=== PATIENT | female | born 1945 | race Caucasian/White ===

== ENCOUNTER 2016-04-19 08:53 | Inpatient (IN) | payer MEDICARE ==
[~2016-04-19] VITALS: Ht 165.1 cm; Wt 75.7 kg
[~2016-04-19 08:53] MED LIST: AMLO5TAB66 PO; BENA20TA3 PO; BUPR-47 PO; CARB-60 PO; HYDR25TA PO; LEVO125T11 PO; METF500T4 PO; METO50TA5 PO
[2016-04-19] MEDS ORDERED: HYDR25TA PO (09:05)
[2016-04-19 09:12] LABS: GLUCOSE,POINT OF CARE 171 MG/DL (70-110)
[2016-04-19] MEDS ORDERED: SODIUM CHLORIDE 0.9% 1,000 ML IV ONE (11:00)
[2016-04-19] MEDS ORDERED: ACETAMINOPHEN 1000 MG/ISO-OSM 100 ML IV ONE (11:00)
[2016-04-19 11:17] LABS: BASOPHILS % (AUTO) 0.2 % (0.0-2.0); EOSINOPHILS % (AUTO) 0.2 % (1.0-6.0); HEMATOCRIT 36.6 % (36-46); LYMPHOCYTES # (AUTO) 2.1 K/uL (1.0-4.8); LYMPHOCYTES % (AUTO) 13.1 % (22.0-44.0); MEAN CORPUSCULAR HEMOGLOBIN 30.8 pg (26.0-34.0); MEAN CORPUSCULAR HGB CONC 32.7 G/dL (31.0-37.0); MEAN CORPUSCULAR VOLUME 94 fL (80-100); MONOCYTES # (AUTO) 1.2 K/uL (0.1-1.0); MONOCYTES % (AUTO) 7.2 % (2.0-9.0); NEUTROPHILS % (AUTO) 79.3 % (40.0-70.0); PLATELET COUNT (AUTO) 409 K/uL (150-450); RED BLOOD CELL COUNT(AUTO) 3.88 MIL/uL (4.00-5.20); RED CELL DISTRIBUTION WIDTH 13.2 % (11.5-14.5); WHITE BLOOD COUNT (AUTO) 16.4 K/uL (4.5-11.0)
[2016-04-19 11:34] LABS: ALANINE AMINOTRANSFERASE 16 U/L (12-78); ALBUMIN 2.8 g/dL (3.4-5.0); ANION GAP 9 mmol/L (8-16); ASPARTATE AMINOTRANSFERASE 15 U/L (15-37); BILIRUBIN,TOTAL 0.4 mg/dL (0.1-1.0); CALCIUM, TOTAL 8.2 mg/dL (8.8-10.5); CARBON DIOXIDE 33 mmol/L (22-29); CHLORIDE 90 mmol/L (98-107); CREATININE 0.82 mg/dL (0.60-1.30); GLOMERULAR FILTR. RATE CALC > 60 mL/min (>60); SODIUM SERUM 132 mmol/L (136-145); TOTAL PROTEIN, SERUM 7.4 g/dL (6.4-8.2); UREA NITROGEN, BLOOD 9 mg/dL (7-18)
[2016-04-19 11:36] LABS: POTASSIUM 2.4 mmol/L (3.5-5.1)
[2016-04-19] MEDS ORDERED: POTASSIUM CHLORIDE 20 MEQ ER TABLET PO ONE (11:45)
[2016-04-19] MEDS: POTASSIUM CHL 10 MEQ/WATER 50 ML IV SCH ×4 (12:05→22:09)
[2016-04-19] MEDS ORDERED: AZITHROMYCIN 500 MG/NS 250 ML IV ONE (12:15)
[2016-04-19] MEDS ORDERED: OSELTAMIVIR PHOSPHATE 75 MG CAPSULE PO ONE (12:15)
[2016-04-19] MEDS ORDERED: CefTRIAXone 1 GM/DEXTROSE 50 ML IV ONE (12:15)
[2016-04-19 12:20] LABS: INFLUENZA TYPE B NEGATIVE FOR TYPE B (NEGATIVE)
[2016-04-19] MEDS ORDERED: ACETAMINOPHEN 325 MG TABLET PO PRN (13:15)
[2016-04-19] MEDS ORDERED: ONDANSETRON HCL 4 MG/2 ML VIAL IVP PRN (13:15)
[2016-04-19] MEDS ORDERED: SODIUM CHLORIDE 0.9% 500 ML IV ONE (13:20)
[2016-04-19] MEDS ORDERED: ALBUTEROL SULFATE 2.5 MG/0.5 ML NEB SOLUTION NEB PRN (14:15)
[2016-04-19] MEDS ORDERED: MAGNESIUM HYDROXIDE SUSPENSION 30 ML UDCUP PO PRN (14:15)
[2016-04-19] MEDS ORDERED: POTASSIUM CHL 10 MEQ/WATER 50 ML IV PRN (14:30)
[2016-04-19 14:51] VITALS: BP 138/74
[2016-04-19] MEDS ORDERED: SODIUM CHLORIDE 0.9% 100 ML ONE (15:02)
[2016-04-19] MEDS: HEPARIN SODIUM,PORCINE 5,000 UNITS/ML VIAL SQ SCH ×2 (16:00→23:58)
[2016-04-19 16:13] VITALS: BP 135/84
[2016-04-19] MEDS ORDERED: DEXTROSE 50%-WATER 25 GM/50 ML SYRINGE IVP PRN (17:15)
[2016-04-19] MEDS: AZITHROMYCIN 500 MG/NS 250 ML IV SCH (18:04)
[2016-04-19 18:27] LABS: GLUCOSE,POINT OF CARE 106 MG/DL (70-110)
[2016-04-19] MEDS ORDERED: INFLUENZA VIRUS VACCINE QVS 2016-17 (3YR+)/PF 60 MCG/0.5 ML SYRINGE IM ONE (19:30)
[2016-04-19] MEDS ORDERED: PNEUMOCOCCAL VACCINE POLYVALENT 0.5 ML VIAL [PPSV23] IM ONE (19:30)
[2016-04-19 19:35] VITALS: BP 138/74
[2016-04-19] MEDS: DOCUSATE SODIUM 100 MG CAPSULE PO SCH (20:07)
[2016-04-19] MEDS: ACETAMINOPHEN 325 MG TABLET PO PRN (20:07)
[2016-04-19] MEDS: OSELTAMIVIR PHOSPHATE 75 MG CAPSULE PO SCH (20:07)
[2016-04-19] MEDS: INSULIN ASPART 100 UNITS/ML SQ PRN (20:44)
[2016-04-19 22:16] LABS: GLUCOSE COMMENT 1 Received Meds; GLUCOSE,POINT OF CARE 151 MG/DL (70-110)
[2016-04-20] VITALS (7 sets, daily range): BP systolic 121–146; BP diastolic 57–84
[2016-04-20] MEDS: GuaiFENesin/D-METHORPHAN [SUGAR-FREE] 200-20MG/10 ML SYRUP UDCUP PO PRN ×3 (04:50→21:29)
[2016-04-20] MEDS: ACETAMINOPHEN 325 MG TABLET PO PRN (04:51)
[2016-04-20] MEDS: INSULIN ASPART 100 UNITS/ML SQ PRN (06:07)
[2016-04-20] MEDS: HEPARIN SODIUM,PORCINE 5,000 UNITS/ML VIAL SQ SCH ×3 (08:00→23:50)
[2016-04-20] MEDS: DOCUSATE SODIUM 100 MG CAPSULE PO SCH ×2 (09:00→21:29)
[2016-04-20] MEDS: POTASSIUM CHLORIDE 20 MEQ ER TABLET PO PRN ×2 (09:56→17:29)
[2016-04-20] MEDS: PANTOPRAZOLE SODIUM 40 MG DR TABLET PO SCH (09:57)
[2016-04-20] MEDS: OSELTAMIVIR PHOSPHATE 75 MG CAPSULE PO SCH ×2 (09:58→21:30)
[2016-04-20 14:57] LABS: GLUCOSE,POINT OF CARE 137 MG/DL (70-110)
[2016-04-20] MEDS: AZITHROMYCIN 500 MG/NS 250 ML IV SCH (17:13)
[2016-04-20] MEDS ORDERED: AMLO-512 PO (17:53)
[2016-04-20 21:37] LABS: GLUCOSE,POINT OF CARE 140 MG/DL (70-110)
[2016-04-21 02:42] LABS: GLUCOSE,POINT OF CARE 115 MG/DL (70-110)
[2016-04-21 04:00] VITALS: BP 144/73
[2016-04-21 06:12] LABS: BASOPHILS % (AUTO) 0.6 % (0.0-2.0); EOSINOPHILS % (AUTO) 0.6 % (1.0-6.0); HEMATOCRIT 34.7 % (36-46); HEMOGLOBIN 11.2 g/dL (12.0-16.0); LYMPHOCYTES % (AUTO) 22.2 % (22.0-44.0); MEAN CORPUSCULAR HEMOGLOBIN 30.3 pg (26.0-34.0); MEAN CORPUSCULAR HGB CONC 32.2 G/dL (31.0-37.0); MEAN CORPUSCULAR VOLUME 94 fL (80-100); MONOCYTES # (AUTO) 1.2 K/uL (0.1-1.0); MONOCYTES % (AUTO) 8.7 % (2.0-9.0); NEUTROPHILS # (AUTO) 9.1 K/uL (1.8-7.7); NEUTROPHILS % (AUTO) 67.9 % (40.0-70.0); PLATELET COUNT (AUTO) 432 K/uL (150-450); RED BLOOD CELL COUNT(AUTO) 3.69 MIL/uL (4.00-5.20); RED CELL DISTRIBUTION WIDTH 13.1 % (11.5-14.5); WHITE BLOOD COUNT (AUTO) 13.4 K/uL (4.5-11.0)
[2016-04-21 06:26] LABS: ANION GAP 10 mmol/L (8-16); CALCIUM, TOTAL 8.6 mg/dL (8.8-10.5); CARBON DIOXIDE 26 mmol/L (22-29); CHLORIDE 99 mmol/L (98-107); CREATININE 0.64 mg/dL (0.60-1.30); GLOMERULAR FILTR. RATE CALC > 60 mL/min (>60); POTASSIUM 3.8 mmol/L (3.5-5.1); SODIUM SERUM 135 mmol/L (136-145); UREA NITROGEN, BLOOD 7 mg/dL (7-18)
[2016-04-21 06:57] LABS: GLUCOSE,POINT OF CARE 127 MG/DL (70-110)
[2016-04-21 07:49] VITALS: BP 143/88
[2016-04-21] MEDS: DOCUSATE SODIUM 100 MG CAPSULE PO SCH (08:18)
[2016-04-21] MEDS: OSELTAMIVIR PHOSPHATE 75 MG CAPSULE PO SCH (08:18)
[2016-04-21] MEDS: PANTOPRAZOLE SODIUM 40 MG DR TABLET PO SCH (08:18)
[2016-04-21] MEDS: ACETAMINOPHEN 325 MG TABLET PO PRN (08:18)
[2016-04-21] MEDS: GuaiFENesin/D-METHORPHAN [SUGAR-FREE] 200-20MG/10 ML SYRUP UDCUP PO PRN (08:18)
[2016-04-21] MEDS: HEPARIN SODIUM,PORCINE 5,000 UNITS/ML VIAL SQ SCH (08:19)
[2016-04-21 11:51] VITALS: BP 145/78
[2016-04-21 15:15] VITALS: BP 146/77
[2016-04-21 16:16] LABS: GLUCOSE,POINT OF CARE 109 MG/DL (70-110)
[2016-04-22 11:58] LABS: GLUCOSE,POINT OF CARE 131 MG/DL (70-110)
== END 2016-04-21 16:20 | disposition home or self-care (01) | DRG 195 ==
LOC: EMS 08:54 → 5S 12:33 → 6N 04-20 19:00
PROVIDERS: ADMIT Internal Medicine; ATTEND Internal Medicine
PROC: 3E0234Z Introduction of Serum, Toxoid and Vaccine into Muscle, Percutaneous Approach (ICD-10-PCS; principal; 2016-04-19)
DX: J11.00 Influenza due to unidentified influenza virus with unspecified type of pneumonia (principal); E03.9 Hypothyroidism, unspecified; E11.9 Type 2 diabetes mellitus without complications; E66.9 Obesity, unspecified; E87.6 Hypokalemia; I10 Essential (primary) hypertension; J40 Bronchitis, not specified as acute or chronic; F41.9 Anxiety disorder, unspecified; Z79.899 Other long term (current) drug therapy; Z87.891 Personal history of nicotine dependence; Z23 Encounter for immunization
CPT/HCPCS: 82962; 83605; 84132; 87040; 87804; 90471; 93005; 96365; 99285; J0131; J0456; J1644; J3480; J7030; J7040; J7050

== ENCOUNTER 2021-03-17 13:01 | Inpatient (IN) | payer MEDICARE ==
[~2021-03-17] VITALS: Ht 160 cm; Wt 69.9 kg
[~2021-03-17 13:01] MED LIST changes: -AMLO5TAB66 PO; -BENA20TA3 PO; -BUPR-47 PO; +BUPR-49 PO; -CARB-60 PO; -HYDR25TA PO; -METF500T4 PO; -METO50TA5 PO
[2021-03-17] MEDS ORDERED: ONDANSETRON HCL 4 MG/2 ML VIAL IVP ONE (15:30)
[2021-03-17] MEDS ORDERED: SODIUM CHLORIDE 0.9% 1,000 ML IV ONE (15:30)
[2021-03-17] MEDS ORDERED: ACETAMINOPHEN 500 MG TABLET PO ONE (15:30)
[2021-03-17] MEDS ORDERED: METO50 PO (15:31)
[2021-03-17] MEDS ORDERED: HYDR25TA PO (15:31)
[2021-03-17] MEDS ORDERED: POTA-185 PO (15:31)
[2021-03-17] MEDS ORDERED: BENA40TA92 PO (15:31)
[2021-03-17] MEDS ORDERED: METF-1211 PO (15:31)
[2021-03-17] MEDS ORDERED: FENO134C PO (15:31)
[2021-03-17] MEDS ORDERED: ATOR20TA65 PO (15:31)
[2021-03-17] MEDS ORDERED: LEVO137T24 PO (15:31)
[2021-03-17 16:01] LABS: BASOPHILS % (AUTO) 0.1 % (0.0-2.0); EOSINOPHILS % (AUTO) 0.1 % (1.0-6.0); HEMATOCRIT 42.2 % (36-46); HEMOGLOBIN 14.3 g/dL (12.0-16.0); LYMPHOCYTES # (AUTO) 1.7 K/uL (1.0-4.8); LYMPHOCYTES % (AUTO) 18.6 % (22.0-44.0); MEAN CORPUSCULAR HEMOGLOBIN 30.8 pg (26.0-34.0); MEAN CORPUSCULAR HGB CONC 33.8 G/dL (31.0-37.0); MEAN CORPUSCULAR VOLUME 91 fL (80-100); MONOCYTES # (AUTO) 0.7 K/uL (0.1-1.0); MONOCYTES % (AUTO) 7.9 % (2.0-9.0); NEUTROPHILS # (AUTO) 6.6 K/uL (1.8-7.7); NEUTROPHILS % (AUTO) 73.3 % (40.0-70.0); PLATELET COUNT (AUTO) 341 K/uL (150-450); RED BLOOD CELL COUNT(AUTO) 4.63 MIL/uL (4.00-5.20); RED CELL DISTRIBUTION WIDTH 13.1 % (11.5-14.5)
[2021-03-17 16:07] LABS: BILIRUBIN,TOTAL 0.3 mg/dL (0.1-1.0); CALCIUM, TOTAL 8.9 mg/dL (8.8-10.5); CREATININE 1.83 mg/dL (0.60-1.30); TOTAL PROTEIN, SERUM 7.8 g/dL (6.4-8.2)
[2021-03-17 16:12] LABS: COVID AG,FIA SOURCE NASOPHARYNGEAL
[2021-03-17 16:12] LABS: POTASSIUM 2.9 mmol/L (3.5-5.1)
[2021-03-17] MEDS ORDERED: POTASSIUM CHLORIDE 10% 40 MEQ/30 ML LIQUID UDCUP PO ONE ×2 (16:15→17:30)
[2021-03-17] MEDS ORDERED: ASPIRIN 325 MG TABLET PO ONE (16:30)
[2021-03-17] MEDS ORDERED: DILTIAZEM HCL 5 MG/ML 5 ML VIAL IVP ONE ×2 (16:30→18:45)
[2021-03-17] MEDS ORDERED: DIGOXIN 250 MCG/ML 2 ML AMP IVP ONE (16:30)
[2021-03-17] MEDS ORDERED: CALCIUM GLUCONATE 100 MG/ML 10 ML IVP ONE (16:30)
[2021-03-17] MEDS ORDERED: ONDANSETRON HCL 4 MG/2 ML VIAL IVP PRN (19:15)
[2021-03-17] MEDS ORDERED: HEPARIN SODIUM,PORCINE 5,000 UNITS/ML VIAL IVP PRN (19:30)
[2021-03-17] MEDS ORDERED: HEPARIN SODIUM,PORCINE 5,000 UNITS/ML VIAL IVP ONE (19:30)
[2021-03-17] MEDS ORDERED: DEXTROSE 50%-WATER 25 GM/50 ML SYRINGE IVP PRN (19:30)
[2021-03-17 19:50] LABS: INR 0.9 (0.9-1.1); PROTHROMBIN TIME 9.9 SEC (9.4-11.6)
[2021-03-17] MEDS: HEPARIN SODIUM 25000 UNITS/D5W 250 ML IV PRN (20:14)
[2021-03-17] MEDS: METOPROLOL TARTRATE 50 MG TABLET PO SCH (20:41)
[2021-03-17] MEDS ORDERED: ATORVASTATIN CALCIUM 40 MG TABLET PO ONE (20:45)
[2021-03-18 00:30] LABS: CALCIUM, TOTAL 8.4 mg/dL (8.8-10.5); CREATININE 1.55 mg/dL (0.60-1.30); POTASSIUM 3.4 mmol/L (3.5-5.1)
[2021-03-18] MEDS: LEVOTHYROXINE SODIUM 137 MCG TABLET PO SCH (06:19)
[2021-03-18] MEDS ORDERED: POTASSIUM CHLORIDE 20 MEQ ER TABLET PO ONE (08:30)
[2021-03-18] MEDS ORDERED: REMDESIVIR 200 MG in SODIUM CHLORIDE 0.9% 250 ML IV ONE (09:00)
[2021-03-18] MEDS: METOPROLOL TARTRATE 50 MG TABLET PO SCH ×2 (09:54→21:11)
[2021-03-18] MEDS: ASPIRIN 81 MG CHEWABLE TABLET PO SCH (09:54)
[2021-03-18] MEDS: ATORVASTATIN CALCIUM 20 MG TABLET PO SCH (09:54)
[2021-03-18] MEDS: DEXAMETHASONE SOD PHOS 4 MG/ML VIAL IVP SCH (09:57)
[2021-03-18 10:12] LABS: BASOPHILS % (AUTO) 0.2 % (0.0-2.0); EOSINOPHILS % (AUTO) 0.7 % (1.0-6.0); HEMATOCRIT 35.7 % (36-46); HEMOGLOBIN 12.1 g/dL (12.0-16.0); LYMPHOCYTES # (AUTO) 2.1 K/uL (1.0-4.8); MEAN CORPUSCULAR HEMOGLOBIN 30.6 pg (26.0-34.0); MEAN CORPUSCULAR HGB CONC 33.9 G/dL (31.0-37.0); MEAN CORPUSCULAR VOLUME 90 fL (80-100); MONOCYTES # (AUTO) 0.8 K/uL (0.1-1.0); MONOCYTES % (AUTO) 8.7 % (2.0-9.0); NEUTROPHILS # (AUTO) 5.8 K/uL (1.8-7.7); NEUTROPHILS % (AUTO) 66.4 % (40.0-70.0); PLATELET COUNT (AUTO) 308 K/uL (150-450); RED BLOOD CELL COUNT(AUTO) 3.96 MIL/uL (4.00-5.20); RED CELL DISTRIBUTION WIDTH 13.3 % (11.5-14.5)
[2021-03-18 11:11] LABS: GLUCOMETER DEV NAME(LOC) ERT.5; GLUCOSE,POINT OF CARE 110 MG/DL (70-110)
[2021-03-18] MEDS: FENOFIBRATE,MICRONIZED 67 MG CAPSULE PO SCH (12:14)
[2021-03-18] MEDS: BuPROPion HCL XL 150 MG ER TABLET PO SCH (12:14)
[2021-03-18 18:11] LABS: GLUCOSE,POINT OF CARE 99 MG/DL (70-110)
[2021-03-18] MEDS: ACETAMINOPHEN 325 MG TABLET PO PRN (20:43)
[2021-03-19] VITALS (7 sets, daily range): BP systolic 118–144; BP diastolic 50–89
[2021-03-19] MEDS: ACETAMINOPHEN 325 MG TABLET PO PRN (06:23)
[2021-03-19 06:31] LABS: GLUCOMETER DEV NAME(LOC) 5S.2B; GLUCOSE,POINT OF CARE 101 MG/DL (70-110)
[2021-03-19 07:01] LABS: BASOPHILS % (AUTO) 0.2 % (0.0-2.0); EOSINOPHILS % (AUTO) 0.3 % (1.0-6.0); HEMATOCRIT 37.5 % (36-46); HEMOGLOBIN 12.8 g/dL (12.0-16.0); LYMPHOCYTES # (AUTO) 2.4 K/uL (1.0-4.8); LYMPHOCYTES % (AUTO) 26.2 % (22.0-44.0); MEAN CORPUSCULAR HEMOGLOBIN 30.8 pg (26.0-34.0); MEAN CORPUSCULAR HGB CONC 34.1 G/dL (31.0-37.0); MEAN CORPUSCULAR VOLUME 90 fL (80-100); MONOCYTES # (AUTO) 0.7 K/uL (0.1-1.0); MONOCYTES % (AUTO) 7.9 % (2.0-9.0); NEUTROPHILS % (AUTO) 65.4 % (40.0-70.0); PLATELET COUNT (AUTO) 379 K/uL (150-450); RED BLOOD CELL COUNT(AUTO) 4.15 MIL/uL (4.00-5.20); RED CELL DISTRIBUTION WIDTH 13.1 % (11.5-14.5)
[2021-03-19 07:27] LABS: ALANINE AMINOTRANSFERASE 17 U/L (12-78); ALBUMIN 2.5 g/dL (3.4-5.0); ALKALINE PHOSPHATASE 54 U/L (46-116); ANION GAP 12 mmol/L (8-16); ASPARTATE AMINOTRANSFERASE 24 U/L (15-37); BILIRUBIN,TOTAL 0.2 mg/dL (0.1-1.0); C-REACTIVE PROTEIN QUANT 6.55 mg/dL (0.00-0.30); CALCIUM, TOTAL 8.3 mg/dL (8.8-10.5); CARBON DIOXIDE 25 mmol/L (22-29); CHLORIDE 100 mmol/L (98-107); CREATININE 1.04 mg/dL (0.60-1.30); FERRITIN 116 ng/mL (8-252); GLOMERULAR FILTR. RATE CALC 52 mL/min (>60); GLUCOSE,RANDOM 105 mg/dL (70-110); POTASSIUM 3.4 mmol/L (3.5-5.1); SODIUM SERUM 137 mmol/L (136-145); TOTAL PROTEIN, SERUM 6.8 g/dL (6.4-8.2); UREA NITROGEN, BLOOD 27 mg/dL (7-18)
[2021-03-19 07:30] LABS: D-DIMER 0.82 mg/L FEU (0.00-0.50)
[2021-03-19] MEDS: BuPROPion HCL XL 150 MG ER TABLET PO SCH (08:29)
[2021-03-19] MEDS: METOPROLOL TARTRATE 50 MG TABLET PO SCH ×2 (08:29→21:20)
[2021-03-19] MEDS: FENOFIBRATE,MICRONIZED 67 MG CAPSULE PO SCH (08:29)
[2021-03-19] MEDS: ASPIRIN 81 MG CHEWABLE TABLET PO SCH (08:30)
[2021-03-19] MEDS: FAMOTIDINE 20 MG TABLET PO SCH (08:30)
[2021-03-19] MEDS: LEVOTHYROXINE SODIUM 137 MCG TABLET PO SCH (08:30)
[2021-03-19] MEDS: ATORVASTATIN CALCIUM 20 MG TABLET PO SCH (08:31)
[2021-03-19] MEDS: DEXAMETHASONE SOD PHOS 4 MG/ML VIAL IVP SCH (08:31)
[2021-03-19] MEDS: HEPARIN SODIUM,PORCINE 5,000 UNITS/ML VIAL IVP PRN (08:34)
[2021-03-19] MEDS ORDERED: MAGNESIUM SULFATE 2 GM/WATER 50 ML IV PRN (09:00)
[2021-03-19] MEDS ORDERED: MAGNESIUM SULFATE 4 GM/WATER 100 ML IV PRN (09:00)
[2021-03-19] MEDS ORDERED: POTASSIUM CHL 10 MEQ/WATER 50 ML IV PRN (09:00)
[2021-03-19] MEDS ORDERED: POTASSIUM CHLORIDE 20 MEQ ER TABLET PO PRN (09:00)
[2021-03-19] MEDS: LOSARTAN POTASSIUM 25 MG TABLET PO SCH ×2 (09:15→21:13)
[2021-03-19] MEDS: REMDESIVIR 100 MG in SODIUM CHLORIDE 0.9% 250 ML IV SCH (12:08)
[2021-03-19] MEDS: MAGNESIUM OXIDE 400 MG TABLET PO PRN ×2 (14:42→21:13)
[2021-03-19 16:38] LABS: ALBUMIN 2.3 g/dL (3.4-5.0)
[2021-03-19 17:23] LABS: INFLUENZA TYPE A NEGATIVE FOR TYPE A (NEGATIVE); INFLUENZA TYPE B NEGATIVE FOR TYPE B (NEGATIVE)
[2021-03-19] MEDS: INSULIN LISPRO 100 UNITS/ML SQ PRN ×2 (18:06→21:26)
[2021-03-19 19:37] LABS: POTASSIUM 3.9 mmol/L (3.5-5.1)
[2021-03-19 20:36] LABS: GLUCOMETER DEV NAME(LOC) 5S.1; GLUCOSE,POINT OF CARE 140 MG/DL (70-110)
[2021-03-19 20:36] LABS: GLUCOMETER DEV NAME(LOC) 5S.1; GLUCOSE,POINT OF CARE 155 MG/DL (70-110)
[2021-03-20] MEDS: HEPARIN SODIUM 25000 UNITS/D5W 250 ML IV PRN (03:31)
[2021-03-20 04:18] VITALS: BP 143/86
[2021-03-20] MEDS: INSULIN LISPRO 100 UNITS/ML SQ PRN ×2 (05:44→11:44)
[2021-03-20] MEDS: LEVOTHYROXINE SODIUM 137 MCG TABLET PO SCH (06:00)
[2021-03-20 07:15] VITALS: BP 158/83
[2021-03-20 07:29] LABS: BASOPHILS % (AUTO) 0.2 % (0.0-2.0); EOSINOPHILS % (AUTO) 0.3 % (1.0-6.0); HEMOGLOBIN 12.7 g/dL (12.0-16.0); LYMPHOCYTES # (AUTO) 3.1 K/uL (1.0-4.8); MEAN CORPUSCULAR HEMOGLOBIN 30.5 pg (26.0-34.0); MEAN CORPUSCULAR HGB CONC 33.6 G/dL (31.0-37.0); MEAN CORPUSCULAR VOLUME 91 fL (80-100); MONOCYTES # (AUTO) 1.1 K/uL (0.1-1.0); MONOCYTES % (AUTO) 10.2 % (2.0-9.0); NEUTROPHILS # (AUTO) 6.4 K/uL (1.8-7.7); NEUTROPHILS % (AUTO) 60.3 % (40.0-70.0); PLATELET COUNT (AUTO) 440 K/uL (150-450); RED BLOOD CELL COUNT(AUTO) 4.18 MIL/uL (4.00-5.20); RED CELL DISTRIBUTION WIDTH 13.5 % (11.5-14.5)
[2021-03-20 07:48] LABS: ALBUMIN 2.7 g/dL (3.4-5.0); BILIRUBIN,TOTAL 0.3 mg/dL (0.1-1.0); C-REACTIVE PROTEIN QUANT 4.9 mg/dL (0.00-0.30); CALCIUM, TOTAL 8.7 mg/dL (8.8-10.5); CREATININE 1.04 mg/dL (0.60-1.30); MAGNESIUM 1.6 mg/dL (1.80-2.40); POTASSIUM 3.7 mmol/L (3.5-5.1)
[2021-03-20 07:55] LABS: D-DIMER 0.89 mg/L FEU (0.00-0.50)
[2021-03-20] MEDS: BuPROPion HCL XL 150 MG ER TABLET PO SCH (09:31)
[2021-03-20] MEDS: LOSARTAN POTASSIUM 25 MG TABLET PO SCH ×2 (09:31→20:39)
[2021-03-20] MEDS: FAMOTIDINE 20 MG TABLET PO SCH (09:31)
[2021-03-20] MEDS: ATORVASTATIN CALCIUM 20 MG TABLET PO SCH (09:32)
[2021-03-20] MEDS: ASPIRIN 81 MG CHEWABLE TABLET PO SCH (09:32)
[2021-03-20] MEDS: METOPROLOL TARTRATE 50 MG TABLET PO SCH ×2 (09:32→20:37)
[2021-03-20] MEDS: FENOFIBRATE,MICRONIZED 67 MG CAPSULE PO SCH (09:32)
[2021-03-20] MEDS: DEXAMETHASONE SOD PHOS 4 MG/ML VIAL IVP SCH (09:33)
[2021-03-20] MEDS: HEPARIN SODIUM,PORCINE 5,000 UNITS/ML VIAL IVP PRN (10:50)
[2021-03-20 11:28] VITALS: BP 131/62
[2021-03-20] MEDS: REMDESIVIR 100 MG in SODIUM CHLORIDE 0.9% 250 ML IV SCH (11:46)
[2021-03-20 11:51] LABS: GLUCOMETER DEV NAME(LOC) 5S.2B; GLUCOSE,POINT OF CARE 139 MG/DL (70-110)
[2021-03-20 11:51] LABS: GLUCOMETER DEV NAME(LOC) 5S.2B; GLUCOSE,POINT OF CARE 107 MG/DL (70-110)
[2021-03-20 15:23] VITALS: BP 149/70
[2021-03-20 17:47] LABS: GLUCOMETER DEV NAME(LOC) 5N.1C; GLUCOSE,POINT OF CARE 138 MG/DL (70-110)
[2021-03-20 17:47] LABS: GLUCOMETER DEV NAME(LOC) 5N.1C; GLUCOSE,POINT OF CARE 197 MG/DL (70-110)
[2021-03-20 19:49] VITALS: BP 138/78
[2021-03-20 21:16] LABS: GLUCOMETER DEV NAME(LOC) 5S.1; GLUCOSE,POINT OF CARE 174 MG/DL (70-110)
[2021-03-21] VITALS (8 sets, daily range): BP systolic 123–163; BP diastolic 56–82
[2021-03-21] MEDS: HEPARIN SODIUM 25000 UNITS/D5W 250 ML IV PRN (04:01)
[2021-03-21] MEDS: LEVOTHYROXINE SODIUM 137 MCG TABLET PO SCH (06:03)
[2021-03-21] MEDS: DEXAMETHASONE SOD PHOS 4 MG/ML VIAL IVP SCH (09:11)
[2021-03-21] MEDS: LOSARTAN POTASSIUM 25 MG TABLET PO SCH ×2 (09:11→20:25)
[2021-03-21] MEDS: ASPIRIN 81 MG CHEWABLE TABLET PO SCH (09:11)
[2021-03-21] MEDS: ATORVASTATIN CALCIUM 20 MG TABLET PO SCH (09:11)
[2021-03-21] MEDS: FAMOTIDINE 20 MG TABLET PO SCH (09:12)
[2021-03-21] MEDS: METOPROLOL TARTRATE 50 MG TABLET PO SCH ×2 (09:12→20:27)
[2021-03-21] MEDS: FENOFIBRATE,MICRONIZED 67 MG CAPSULE PO SCH (09:12)
[2021-03-21] MEDS: BuPROPion HCL XL 150 MG ER TABLET PO SCH (09:13)
[2021-03-21 10:47] LABS: GLUCOMETER DEV NAME(LOC) 5S.1; GLUCOSE,POINT OF CARE 102 MG/DL (70-110)
[2021-03-21] MEDS: INSULIN LISPRO 100 UNITS/ML SQ PRN ×3 (11:36→20:30)
[2021-03-21] MEDS: REMDESIVIR 100 MG in SODIUM CHLORIDE 0.9% 250 ML IV SCH (11:39)
[2021-03-21 12:05] LABS: BASOPHILS % (AUTO) 0.1 % (0.0-2.0); EOSINOPHILS % (AUTO) 0.2 % (1.0-6.0); HEMATOCRIT 36.4 % (36-46); HEMOGLOBIN 12.2 g/dL (12.0-16.0); LYMPHOCYTES # (AUTO) 1.4 K/uL (1.0-4.8); LYMPHOCYTES % (AUTO) 11.1 % (22.0-44.0); MEAN CORPUSCULAR HEMOGLOBIN 30.2 pg (26.0-34.0); MEAN CORPUSCULAR HGB CONC 33.4 G/dL (31.0-37.0); MEAN CORPUSCULAR VOLUME 90 fL (80-100); MONOCYTES # (AUTO) 0.8 K/uL (0.1-1.0); MONOCYTES % (AUTO) 6.4 % (2.0-9.0); NEUTROPHILS # (AUTO) 10.6 K/uL (1.8-7.7); NEUTROPHILS % (AUTO) 82.2 % (40.0-70.0); PLATELET COUNT (AUTO) 457 K/uL (150-450); RED BLOOD CELL COUNT(AUTO) 4.03 MIL/uL (4.00-5.20); RED CELL DISTRIBUTION WIDTH 13.5 % (11.5-14.5)
[2021-03-21 12:18] LABS: ALBUMIN 2.5 g/dL (3.4-5.0); BILIRUBIN,TOTAL 0.3 mg/dL (0.1-1.0); CALCIUM, TOTAL 8.6 mg/dL (8.8-10.5); CREATININE 1.09 mg/dL (0.60-1.30); POTASSIUM 4.3 mmol/L (3.5-5.1); TOTAL PROTEIN, SERUM 6.4 g/dL (6.4-8.2)
[2021-03-21] MEDS ORDERED: BENZONATATE 100 MG CAPSULE PO PRN (13:15)
[2021-03-21] MEDS: APIXABAN 5 MG TABLET PO SCH ×2 (13:35→20:25)
[2021-03-21 17:51] LABS: GLUCOMETER DEV NAME(LOC) 5S.1; GLUCOSE,POINT OF CARE 174 MG/DL (70-110)
[2021-03-21 17:51] LABS: GLUCOMETER DEV NAME(LOC) 5S.1; GLUCOSE,POINT OF CARE 156 MG/DL (70-110)
[2021-03-21 21:36] LABS: GLUCOMETER DEV NAME(LOC) 5S.1; GLUCOSE,POINT OF CARE 232 MG/DL (70-110)
[2021-03-22 04:04] VITALS: BP 141/71
[2021-03-22] MEDS: LEVOTHYROXINE SODIUM 137 MCG TABLET PO SCH (06:06)
[2021-03-22 08:03] VITALS: BP 129/96
[2021-03-22] MEDS ORDERED: APIX5TAB PO (09:25)
[2021-03-22] MEDS: DEXAMETHASONE SOD PHOS 4 MG/ML VIAL IVP SCH (09:27)
[2021-03-22] MEDS: LOSARTAN POTASSIUM 25 MG TABLET PO SCH (09:28)
[2021-03-22] MEDS: APIXABAN 5 MG TABLET PO SCH (09:28)
[2021-03-22] MEDS: ATORVASTATIN CALCIUM 20 MG TABLET PO SCH (09:28)
[2021-03-22] MEDS: ASPIRIN 81 MG CHEWABLE TABLET PO SCH (09:28)
[2021-03-22] MEDS: FAMOTIDINE 20 MG TABLET PO SCH (09:29)
[2021-03-22] MEDS: BuPROPion HCL XL 150 MG ER TABLET PO SCH (09:29)
[2021-03-22] MEDS: FENOFIBRATE,MICRONIZED 67 MG CAPSULE PO SCH (09:29)
[2021-03-22] MEDS: METOPROLOL TARTRATE 50 MG TABLET PO SCH (09:29)
[2021-03-22] MEDS: REMDESIVIR 100 MG in SODIUM CHLORIDE 0.9% 250 ML IV SCH (11:33)
[2021-03-22] MEDS: INSULIN LISPRO 100 UNITS/ML SQ PRN ×2 (11:35→16:50)
[2021-03-22 11:41] LABS: GLUCOMETER DEV NAME(LOC) 5N.1C; GLUCOSE,POINT OF CARE 95 MG/DL (70-110)
[2021-03-22 11:44] VITALS: BP 147/62
[2021-03-22 12:11] LABS: GLUCOMETER DEV NAME(LOC) 5S.1; GLUCOSE,POINT OF CARE 202 MG/DL (70-110)
[2021-03-22 15:33] VITALS: BP 148/88
[2021-03-25 00:11] LABS: GLUCOMETER DEV NAME(LOC) 5N.3; GLUCOSE,POINT OF CARE 253 MG/DL (70-110)
== END 2021-03-22 18:05 | disposition home or self-care (01) | DRG 177 ==
LOC: EMS 13:03 → 5N 03-18 23:50
PROVIDERS: ADMIT Internal Medicine; ATTEND Internal Medicine
PROC: XW033E5 Introduction of Remdesivir Anti-infective into Peripheral Vein, Percutaneous Approach, New Technology Group 5 (ICD-10-PCS; principal; 2021-03-18)
DX: U07.1 COVID-19 (principal); I21.4 Non-ST elevation (NSTEMI) myocardial infarction; J12.82 Pneumonia due to coronavirus disease 2019; J96.01 Acute respiratory failure with hypoxia; N17.9 Acute kidney failure, unspecified; I42.9 Cardiomyopathy, unspecified; I50.20 Unspecified systolic (congestive) heart failure; E87.6 Hypokalemia; E78.5 Hyperlipidemia, unspecified; E11.40 Type 2 diabetes mellitus with diabetic neuropathy, unspecified; I11.0 Hypertensive heart disease with heart failure; E03.9 Hypothyroidism, unspecified; I48.91 Unspecified atrial fibrillation; Z90.49 Acquired absence of other specified parts of digestive tract
CPT/HCPCS: 71045; 80048; 80053; 82040; 82728; 82962; 83690; 83735; 84132; 84145; 84484; 85025; 85379; 85610; 85730; 86140; 87804; 93005; 93306; 99291; 99292; J0610; J1100; J1160; J1644; J2405; J3490; J7030; J7050; Q9967; 36415-L1; 36415-TC

== ENCOUNTER 2021-04-13 07:17 | Inpatient (IN) | payer MEDICARE ==
[~2021-04-13] VITALS: Ht 160 cm; Wt 65.5 kg
[~2021-04-13 07:17] MED LIST changes: +APIX5TAB PO; +ATOR20TA65 PO; +BENA40TA92 PO; +FENO134C PO; -LEVO125T11 PO; +LEVO137T24 PO; +METF-1211 PO; +METO50 PO; +POTA-185 PO
[2021-04-13] MEDS ORDERED: LORazepam 2 MG/ML VIAL IVP ONE (07:30)
[2021-04-13] MEDS ORDERED: IOHEXOL 350 MG/ML 75 ML VIAL ONE (07:42)
[2021-04-13] MEDS ORDERED: SODIUM CHLORIDE 0.9% 100 ML ONE (07:42)
[2021-04-13 07:52] LABS: EOSINOPHILS % (AUTO) 3.4 % (1.0-6.0); HEMATOCRIT 36.9 % (36-46); LYMPHOCYTES # (AUTO) 4.9 K/uL (1.0-4.8); LYMPHOCYTES % (AUTO) 42.6 % (22.0-44.0); MEAN CORPUSCULAR HEMOGLOBIN 30.7 pg (26.0-34.0); MEAN CORPUSCULAR HGB CONC 32.5 G/dL (31.0-37.0); MEAN CORPUSCULAR VOLUME 95 fL (80-100); MONOCYTES # (AUTO) 0.8 K/uL (0.1-1.0); NEUTROPHILS # (AUTO) 5.3 K/uL (1.8-7.7); PLATELET COUNT (AUTO) 525 K/uL (150-450)
[2021-04-13 07:57] LABS: CALCIUM, TOTAL 8.7 mg/dL (8.8-10.5); CREATININE 1.16 mg/dL (0.60-1.30); POTASSIUM 3.1 mmol/L (3.5-5.1)
[2021-04-13] MEDS ORDERED: FUROSEMIDE 40 MG/4 ML VIAL IVP ONE (08:00)
[2021-04-13 08:03] LABS: ALBUMIN 2.9 g/dL (3.4-5.0); BILIRUBIN,TOTAL 0.3 mg/dL (0.1-1.0); TOTAL PROTEIN, SERUM 7.1 g/dL (6.4-8.2)
[2021-04-13 08:59] LABS: COVID AG,FIA SOURCE NASOPHARYNGEAL
[2021-04-13] MEDS ORDERED: ACETAMINOPHEN 325 MG TABLET PO PRN (09:45)
[2021-04-13] MEDS ORDERED: ONDANSETRON HCL 4 MG/2 ML VIAL IVP PRN ×2 (09:45→17:00)
[2021-04-13] MEDS ORDERED: HYDROCODONE/ACETAMINOPHEN 5-325 MG TABLET PO PRN (17:00)
[2021-04-13] MEDS ORDERED: ZOLPIDEM TARTRATE 5 MG TABLET PO PRN (17:00)
[2021-04-13] MEDS ORDERED: IPRATROPIUM BROMIDE 0.5 MG/2.5 ML NEB SOLUTION NEB PRN (17:00)
[2021-04-13] MEDS ORDERED: BISACODYL 10 MG RECTAL RECTAL SUPPOSITORY PR PRN (17:00)
[2021-04-13] MEDS ORDERED: ALBUTEROL SULFATE 2.5 MG/0.5 ML NEB SOLUTION NEB PRN (17:00)
[2021-04-13] MEDS ORDERED: MAGNESIUM HYDROXIDE SUSPENSION 30 ML UDCUP PO PRN (17:00)
[2021-04-13] MEDS: DOCUSATE SODIUM 100 MG CAPSULE PO SCH (21:06)
[2021-04-13] MEDS: METOPROLOL TARTRATE 50 MG TABLET PO SCH (21:06)
[2021-04-13] MEDS: APIXABAN 5 MG TABLET PO SCH (21:06)
[2021-04-13 22:00] VITALS: BP 151/81
[2021-04-13 23:00] VITALS: BP 156/76
[2021-04-14] VITALS: BP 156/76
[2021-04-14] MEDS: MORPHINE SULFATE 2 MG/ML SYRINGE IVP PRN ×2 (01:00→03:03)
[2021-04-14] MEDS: HEPARIN SODIUM,PORCINE 5,000 UNITS/ML VIAL SQ SCH ×4 (01:18→23:52)
[2021-04-14 04:00] VITALS: BP 142/71
[2021-04-14] MEDS: LEVOTHYROXINE SODIUM 137 MCG TABLET PO SCH (06:02)
[2021-04-14] MEDS: ATORVASTATIN CALCIUM 20 MG TABLET PO SCH (07:57)
[2021-04-14] MEDS: BuPROPion HCL XL 150 MG ER TABLET PO SCH (07:57)
[2021-04-14] MEDS: PANTOPRAZOLE SODIUM 40 MG/VIAL IVP SCH (07:57)
[2021-04-14] MEDS: METOPROLOL TARTRATE 50 MG TABLET PO SCH ×2 (07:57→21:29)
[2021-04-14] MEDS: APIXABAN 5 MG TABLET PO SCH ×2 (07:58→21:29)
[2021-04-14] MEDS: FENOFIBRATE,MICRONIZED 67 MG CAPSULE PO SCH (07:58)
[2021-04-14] MEDS: BENAZEPRIL HCL 20 MG TABLET PO SCH (07:58)
[2021-04-14] MEDS: POTASSIUM CHLORIDE 10 MEQ ER TABLET PO SCH (07:58)
[2021-04-14 08:00] VITALS: BP 161/71
[2021-04-14] MEDS: DOCUSATE SODIUM 100 MG CAPSULE PO SCH ×2 (09:00→21:29)
[2021-04-14] MEDS: ETHYL ALCOHOL 62% ANTISEPTIC NASAL INHALANT 0.6 ML AMPUL NASAL SCH ×2 (09:52→21:29)
[2021-04-14] MEDS: ACETAMINOPHEN 325 MG TABLET PO PRN (11:54)
[2021-04-14] MEDS ORDERED: DEXTROSE 50%-WATER 25 GM/50 ML SYRINGE IVP PRN (15:00)
[2021-04-14 16:00] VITALS: BP 142/92
[2021-04-14] MEDS: INSULIN LISPRO 100 UNITS/ML SQ PRN ×2 (17:34→21:02)
[2021-04-14] MEDS: FUROSEMIDE 40 MG/4 ML VIAL IVP SCH (17:41)
[2021-04-14] MEDS ORDERED: SODIUM CHLORIDE 0.9% 250 ML IV ONE (18:33)
[2021-04-14 18:46] LABS: GLUCOSE,POINT OF CARE 239 MG/DL (70-110)
[2021-04-14] MEDS: CefTRIAXone SODIUM 2 GM in DEXTROSE 5%-WATER 50 ML IV SCH (18:49)
[2021-04-14] MEDS: DOXYCYCLINE HYCLATE 100 MG in DEXTROSE 5%-WATER 100 ML IV SCH (20:58)
[2021-04-14 21:41] LABS: GLUCOSE,POINT OF CARE 247 MG/DL (70-110)
[2021-04-15] VITALS (7 sets, daily range): BP systolic 128–159; BP diastolic 58–100
[2021-04-15] MEDS: LEVOTHYROXINE SODIUM 137 MCG TABLET PO SCH (06:18)
[2021-04-15] MEDS: DOXYCYCLINE HYCLATE 100 MG in DEXTROSE 5%-WATER 100 ML IV SCH ×2 (07:46→20:30)
[2021-04-15] MEDS: ATORVASTATIN CALCIUM 20 MG TABLET PO SCH (07:47)
[2021-04-15] MEDS: BENAZEPRIL HCL 20 MG TABLET PO SCH (07:47)
[2021-04-15] MEDS: BuPROPion HCL XL 150 MG ER TABLET PO SCH (07:47)
[2021-04-15] MEDS: FENOFIBRATE,MICRONIZED 67 MG CAPSULE PO SCH (07:47)
[2021-04-15] MEDS: APIXABAN 5 MG TABLET PO SCH ×2 (07:47→20:29)
[2021-04-15] MEDS: PANTOPRAZOLE SODIUM 40 MG/VIAL IVP SCH (07:47)
[2021-04-15] MEDS: FUROSEMIDE 40 MG/4 ML VIAL IVP SCH (07:47)
[2021-04-15] MEDS: POTASSIUM CHLORIDE 10 MEQ ER TABLET PO SCH (07:47)
[2021-04-15] MEDS: METOPROLOL TARTRATE 50 MG TABLET PO SCH ×2 (07:47→20:29)
[2021-04-15] MEDS: HEPARIN SODIUM,PORCINE 5,000 UNITS/ML VIAL SQ SCH ×3 (07:48→23:32)
[2021-04-15] MEDS: INSULIN LISPRO 100 UNITS/ML SQ PRN (07:50)
[2021-04-15] MEDS: DOCUSATE SODIUM 100 MG CAPSULE PO SCH ×2 (09:00→20:29)
[2021-04-15 09:21] LABS: GLUCOSE,POINT OF CARE 142 MG/DL (70-110)
[2021-04-15 09:21] LABS: GLUCOSE,POINT OF CARE 138 MG/DL (70-110)
[2021-04-15] MEDS: ETHYL ALCOHOL 62% ANTISEPTIC NASAL INHALANT 0.6 ML AMPUL NASAL SCH ×2 (10:34→20:28)
[2021-04-15 11:51] LABS: GLUCOSE,POINT OF CARE 134 MG/DL (70-110)
[2021-04-15] MEDS: CefTRIAXone SODIUM 2 GM in DEXTROSE 5%-WATER 50 ML IV SCH (19:00)
[2021-04-16 03:23] VITALS: BP 148/82
[2021-04-16] MEDS: LEVOTHYROXINE SODIUM 137 MCG TABLET PO SCH (05:35)
[2021-04-16 06:21] LABS: GLUCOMETER DEV NAME(LOC) 5N.1C; GLUCOSE,POINT OF CARE 133 MG/DL (70-110)
[2021-04-16 06:37] LABS: BASOPHILS % (AUTO) 0.7 % (0.0-2.0); EOSINOPHILS % (AUTO) 1.9 % (1.0-6.0); HEMATOCRIT 33.4 % (36-46); HEMOGLOBIN 11.2 g/dL (12.0-16.0); LYMPHOCYTES # (AUTO) 1.5 K/uL (1.0-4.8); LYMPHOCYTES % (AUTO) 16.6 % (22.0-44.0); MEAN CORPUSCULAR HEMOGLOBIN 31.2 pg (26.0-34.0); MEAN CORPUSCULAR HGB CONC 33.5 G/dL (31.0-37.0); MEAN CORPUSCULAR VOLUME 93 fL (80-100); MONOCYTES # (AUTO) 0.9 K/uL (0.1-1.0); MONOCYTES % (AUTO) 10.5 % (2.0-9.0); NEUTROPHILS # (AUTO) 6.3 K/uL (1.8-7.7); NEUTROPHILS % (AUTO) 70.3 % (40.0-70.0); PLATELET COUNT (AUTO) 374 K/uL (150-450); RED BLOOD CELL COUNT(AUTO) 3.59 MIL/uL (4.00-5.20); RED CELL DISTRIBUTION WIDTH 15.1 % (11.5-14.5)
[2021-04-16 07:14] LABS: ALANINE AMINOTRANSFERASE 19 U/L (12-78); ALBUMIN 2.3 g/dL (3.4-5.0); ALKALINE PHOSPHATASE 103 U/L (46-116); ANION GAP 7 mmol/L (8-16); ASPARTATE AMINOTRANSFERASE 20 U/L (15-37); BILIRUBIN,TOTAL 0.2 mg/dL (0.1-1.0); CALCIUM, TOTAL 8.5 mg/dL (8.8-10.5); CARBON DIOXIDE 30 mmol/L (22-29); CHLORIDE 101 mmol/L (98-107); CREATININE 0.87 mg/dL (0.60-1.30); GLUCOSE,RANDOM 140 mg/dL (70-110); POTASSIUM 3.5 mmol/L (3.5-5.1); SODIUM SERUM 138 mmol/L (136-145); TOTAL PROTEIN, SERUM 6.6 g/dL (6.4-8.2); UREA NITROGEN, BLOOD 19 mg/dL (7-18)
[2021-04-16 07:16] LABS: B-TYPE NATRIURETIC PEPTIDE 1140 pg/mL (0-100); GLOMERULAR FILTR. RATE CALC > 60 mL/min (>60)
[2021-04-16 08:24] VITALS: BP 157/99
[2021-04-16] MEDS: ETHYL ALCOHOL 62% ANTISEPTIC NASAL INHALANT 0.6 ML AMPUL NASAL SCH ×2 (09:00→20:01)
[2021-04-16] MEDS: BENAZEPRIL HCL 20 MG TABLET PO SCH (09:34)
[2021-04-16] MEDS: FENOFIBRATE,MICRONIZED 67 MG CAPSULE PO SCH (09:34)
[2021-04-16] MEDS: FUROSEMIDE 40 MG/4 ML VIAL IVP SCH (09:35)
[2021-04-16] MEDS: BuPROPion HCL XL 150 MG ER TABLET PO SCH (09:35)
[2021-04-16] MEDS: PANTOPRAZOLE SODIUM 40 MG/VIAL IVP SCH (09:35)
[2021-04-16] MEDS: HEPARIN SODIUM,PORCINE 5,000 UNITS/ML VIAL SQ SCH ×3 (09:36→23:43)
[2021-04-16] MEDS: APIXABAN 5 MG TABLET PO SCH ×2 (09:36→19:59)
[2021-04-16] MEDS: POTASSIUM CHLORIDE 10 MEQ ER TABLET PO SCH (09:36)
[2021-04-16] MEDS: ATORVASTATIN CALCIUM 20 MG TABLET PO SCH (09:36)
[2021-04-16] MEDS: METOPROLOL TARTRATE 50 MG TABLET PO SCH ×2 (09:36→19:59)
[2021-04-16] MEDS: DOCUSATE SODIUM 100 MG CAPSULE PO SCH ×2 (09:37→21:00)
[2021-04-16] MEDS: DOXYCYCLINE HYCLATE 100 MG in DEXTROSE 5%-WATER 100 ML IV SCH ×2 (10:08→19:59)
[2021-04-16 11:55] VITALS: BP 159/56
[2021-04-16 16:15] VITALS: BP 166/98
[2021-04-16 17:01] LABS: GLUCOMETER DEV NAME(LOC) 5N.1C; GLUCOSE,POINT OF CARE 218 MG/DL (70-110)
[2021-04-16 17:01] LABS: GLUCOMETER DEV NAME(LOC) 5N.1C; GLUCOSE,POINT OF CARE 148 MG/DL (70-110)
[2021-04-16] MEDS: CefTRIAXone SODIUM 2 GM in DEXTROSE 5%-WATER 50 ML IV SCH (17:56)
[2021-04-16 18:16] LABS: GLUCOMETER DEV NAME(LOC) 5N.1C; GLUCOSE,POINT OF CARE 114 MG/DL (70-110)
[2021-04-16 19:40] VITALS: BP 157/57
[2021-04-17] VITALS: BP 130/67
[2021-04-17 03:33] VITALS: BP 135/74
[2021-04-17] MEDS: LEVOTHYROXINE SODIUM 137 MCG TABLET PO SCH (05:00)
[2021-04-17 07:10] LABS: BASOPHILS % (AUTO) 0.6 % (0.0-2.0); EOSINOPHILS % (AUTO) 1.4 % (1.0-6.0); HEMATOCRIT 34.5 % (36-46); HEMOGLOBIN 11.6 g/dL (12.0-16.0); LYMPHOCYTES # (AUTO) 1.9 K/uL (1.0-4.8); LYMPHOCYTES % (AUTO) 20.7 % (22.0-44.0); MEAN CORPUSCULAR HGB CONC 33.6 G/dL (31.0-37.0); MEAN CORPUSCULAR VOLUME 92 fL (80-100); MONOCYTES # (AUTO) 0.7 K/uL (0.1-1.0); MONOCYTES % (AUTO) 8.2 % (2.0-9.0); NEUTROPHILS # (AUTO) 6.2 K/uL (1.8-7.7); NEUTROPHILS % (AUTO) 69.1 % (40.0-70.0); PLATELET COUNT (AUTO) 389 K/uL (150-450); RED BLOOD CELL COUNT(AUTO) 3.74 MIL/uL (4.00-5.20); RED CELL DISTRIBUTION WIDTH 14.9 % (11.5-14.5)
[2021-04-17 07:37] LABS: ALANINE AMINOTRANSFERASE 19 U/L (12-78); ALBUMIN 2.5 g/dL (3.4-5.0); ALKALINE PHOSPHATASE 91 U/L (46-116); ANION GAP 8 mmol/L (8-16); BILIRUBIN,TOTAL 0.3 mg/dL (0.1-1.0); CALCIUM, TOTAL 8.9 mg/dL (8.8-10.5); CARBON DIOXIDE 30 mmol/L (22-29); CHLORIDE 98 mmol/L (98-107); CREATININE 0.88 mg/dL (0.60-1.30); GLUCOSE,RANDOM 128 mg/dL (70-110); POTASSIUM 3.6 mmol/L (3.5-5.1); SODIUM SERUM 136 mmol/L (136-145); UREA NITROGEN, BLOOD 21 mg/dL (7-18)
[2021-04-17 07:38] LABS: GLOMERULAR FILTR. RATE CALC > 60 mL/min (>60)
[2021-04-17 08:08] LABS: ASPARTATE AMINOTRANSFERASE 20 U/L (15-37)
[2021-04-17] MEDS: FENOFIBRATE,MICRONIZED 67 MG CAPSULE PO SCH (08:29)
[2021-04-17] MEDS: BENAZEPRIL HCL 20 MG TABLET PO SCH (08:29)
[2021-04-17] MEDS: PANTOPRAZOLE SODIUM 40 MG/VIAL IVP SCH (08:29)
[2021-04-17] MEDS: BuPROPion HCL XL 150 MG ER TABLET PO SCH (08:30)
[2021-04-17] MEDS: FUROSEMIDE 40 MG/4 ML VIAL IVP SCH (08:30)
[2021-04-17] MEDS: APIXABAN 5 MG TABLET PO SCH (08:31)
[2021-04-17] MEDS: HEPARIN SODIUM,PORCINE 5,000 UNITS/ML VIAL SQ SCH (08:31)
[2021-04-17] MEDS: ATORVASTATIN CALCIUM 20 MG TABLET PO SCH (08:31)
[2021-04-17] MEDS: DOXYCYCLINE HYCLATE 100 MG in DEXTROSE 5%-WATER 100 ML IV SCH ×2 (08:33→20:16)
[2021-04-17 08:39] VITALS: BP 149/64
[2021-04-17] MEDS: DOCUSATE SODIUM 100 MG CAPSULE PO SCH ×2 (08:52→20:17)
[2021-04-17] MEDS: POTASSIUM CHLORIDE 10 MEQ ER TABLET PO SCH (08:52)
[2021-04-17] MEDS: METOPROLOL TARTRATE 50 MG TABLET PO SCH ×2 (08:52→20:17)
[2021-04-17 10:01] LABS: GLUCOMETER DEV NAME(LOC) 5N.1C; GLUCOSE,POINT OF CARE 142 MG/DL (70-110)
[2021-04-17 12:07] VITALS: BP 144/82
[2021-04-17 17:18] LABS: SPECIMENTYPE,BODY FLUID PLEURAL
[2021-04-17] MEDS: CefTRIAXone SODIUM 2 GM in DEXTROSE 5%-WATER 50 ML IV SCH (17:51)
[2021-04-17 18:40] LABS: APPEARANCE,SPUN,BODY FLUID CLEAR (CLEAR); APPEARANCE,UNSPUN,BODY FLUID HAZY (CLEAR)
[2021-04-17 18:41] LABS: BODY FLUID RBC 666.1 /cu. mm.; COLOR,BODY FLUID YELLOW (LT YELLOW); PH, BODY FLUID 8; TOTAL VOLUME,BODY FLUID 950 mL; WBC, BODY FLUID 157.78 /cu. mm.
[2021-04-17 18:54] LABS: LYMPHOCYTES,BODY FLUID 18 %; MONOCYTES,BODY FLUID 37 %; NEUTROPHILS,BODY FLUID 41 %
[2021-04-17] MEDS ORDERED: HEPARIN SODIUM,PORCINE 5,000 UNITS/ML VIAL IVP PRN ×2 (19:00→20:00)
[2021-04-17 19:25] LABS: INR 1.1 (0.9-1.1); PROTHROMBIN TIME 11.4 SEC (9.4-11.6)
[2021-04-17 20:05] VITALS: BP 135/68
[2021-04-17] MEDS: ETHYL ALCOHOL 62% ANTISEPTIC NASAL INHALANT 0.6 ML AMPUL NASAL SCH ×2 (20:15→20:23)
[2021-04-17] MEDS: HEPARIN SODIUM 25000 UNITS/D5W 250 ML IV PRN (22:40)
[2021-04-17 23:46] VITALS: BP 134/67
[2021-04-18 04:58] VITALS: BP 128/50
[2021-04-18 05:53] LABS: BASOPHILS % (AUTO) 0.5 % (0.0-2.0); EOSINOPHILS % (AUTO) 3.5 % (1.0-6.0); HEMATOCRIT 31.2 % (36-46); HEMOGLOBIN 10.4 g/dL (12.0-16.0); LYMPHOCYTES % (AUTO) 27.4 % (22.0-44.0); MEAN CORPUSCULAR HEMOGLOBIN 30.8 pg (26.0-34.0); MEAN CORPUSCULAR HGB CONC 33.2 G/dL (31.0-37.0); MEAN CORPUSCULAR VOLUME 93 fL (80-100); MONOCYTES # (AUTO) 0.7 K/uL (0.1-1.0); MONOCYTES % (AUTO) 10.2 % (2.0-9.0); NEUTROPHILS # (AUTO) 4.3 K/uL (1.8-7.7); NEUTROPHILS % (AUTO) 58.4 % (40.0-70.0); PLATELET COUNT (AUTO) 333 K/uL (150-450); RED BLOOD CELL COUNT(AUTO) 3.36 MIL/uL (4.00-5.20); RED CELL DISTRIBUTION WIDTH 14.6 % (11.5-14.5)
[2021-04-18 06:05] LABS: ALBUMIN 2.2 g/dL (3.4-5.0); BILIRUBIN,TOTAL 0.2 mg/dL (0.1-1.0); CALCIUM, TOTAL 8.8 mg/dL (8.8-10.5); CREATININE 0.99 mg/dL (0.60-1.30); POTASSIUM 3.5 mmol/L (3.5-5.1); TOTAL PROTEIN, SERUM 6.1 g/dL (6.4-8.2)
[2021-04-18] MEDS: LEVOTHYROXINE SODIUM 137 MCG TABLET PO SCH (06:13)
[2021-04-18] MEDS: METOPROLOL TARTRATE 50 MG TABLET PO SCH ×2 (08:03→20:59)
[2021-04-18] MEDS: DOCUSATE SODIUM 100 MG CAPSULE PO SCH ×2 (08:03→21:00)
[2021-04-18] MEDS: BuPROPion HCL XL 150 MG ER TABLET PO SCH (08:03)
[2021-04-18] MEDS: ATORVASTATIN CALCIUM 20 MG TABLET PO SCH (08:03)
[2021-04-18] MEDS: BENAZEPRIL HCL 20 MG TABLET PO SCH (08:03)
[2021-04-18] MEDS: POTASSIUM CHLORIDE 10 MEQ ER TABLET PO SCH (08:03)
[2021-04-18] MEDS: FENOFIBRATE,MICRONIZED 67 MG CAPSULE PO SCH (08:03)
[2021-04-18] MEDS: PANTOPRAZOLE SODIUM 40 MG/VIAL IVP SCH (08:04)
[2021-04-18] MEDS: DOXYCYCLINE HYCLATE 100 MG in DEXTROSE 5%-WATER 100 ML IV SCH ×2 (08:04→20:59)
[2021-04-18] MEDS: FUROSEMIDE 40 MG/4 ML VIAL IVP SCH (08:04)
[2021-04-18] MEDS: ETHYL ALCOHOL 62% ANTISEPTIC NASAL INHALANT 0.6 ML AMPUL NASAL SCH ×2 (08:04→21:00)
[2021-04-18 08:19] VITALS: BP 121/55
[2021-04-18] MEDS: INSULIN LISPRO 100 UNITS/ML SQ PRN (11:20)
[2021-04-18 11:51] LABS: GLUCOMETER DEV NAME(LOC) 5S.2B; GLUCOSE,POINT OF CARE 169 MG/DL (70-110)
[2021-04-18 11:52] VITALS: BP 124/58
[2021-04-18] MEDS: CefTRIAXone SODIUM 2 GM in DEXTROSE 5%-WATER 50 ML IV SCH (17:31)
[2021-04-18 18:01] LABS: GLUCOMETER DEV NAME(LOC) 5S.2B; GLUCOSE,POINT OF CARE 140 MG/DL (70-110)
[2021-04-18 20:27] VITALS: BP 128/60
[2021-04-18] MEDS ORDERED: FUROSEMIDE 20 MG/2 ML VIAL IVP ONE (21:15)
[2021-04-18] MEDS: HEPARIN SODIUM 25000 UNITS/D5W 250 ML IV PRN (22:59)
[2021-04-18 23:01] LABS: GLUCOMETER DEV NAME(LOC) 5S.2B; GLUCOSE,POINT OF CARE 147 MG/DL (70-110)
[2021-04-18 23:11] VITALS: BP 139/76
[2021-04-19] MEDS: HEPARIN SODIUM 25000 UNITS/D5W 250 ML IV PRN (01:32)
[2021-04-19 04:48] VITALS: BP 131/65
[2021-04-19] MEDS: LEVOTHYROXINE SODIUM 137 MCG TABLET PO SCH (06:22)
[2021-04-19 06:41] LABS: BASOPHILS % (AUTO) 0.6 % (0.0-2.0); EOSINOPHILS % (AUTO) 4.4 % (1.0-6.0); HEMATOCRIT 32.4 % (36-46); HEMOGLOBIN 10.9 g/dL (12.0-16.0); LYMPHOCYTES # (AUTO) 2.5 K/uL (1.0-4.8); LYMPHOCYTES % (AUTO) 32.1 % (22.0-44.0); MEAN CORPUSCULAR HEMOGLOBIN 31.1 pg (26.0-34.0); MEAN CORPUSCULAR HGB CONC 33.6 G/dL (31.0-37.0); MEAN CORPUSCULAR VOLUME 93 fL (80-100); MONOCYTES # (AUTO) 0.8 K/uL (0.1-1.0); MONOCYTES % (AUTO) 10.7 % (2.0-9.0); NEUTROPHILS # (AUTO) 4.1 K/uL (1.8-7.7); NEUTROPHILS % (AUTO) 52.2 % (40.0-70.0); PLATELET COUNT (AUTO) 332 K/uL (150-450); RED CELL DISTRIBUTION WIDTH 14.2 % (11.5-14.5)
[2021-04-19 06:57] LABS: ALBUMIN 2.3 g/dL (3.4-5.0); BILIRUBIN,TOTAL 0.2 mg/dL (0.1-1.0); CALCIUM, TOTAL 8.8 mg/dL (8.8-10.5); CREATININE 1.17 mg/dL (0.60-1.30); POTASSIUM 3.8 mmol/L (3.5-5.1); TOTAL PROTEIN, SERUM 6.4 g/dL (6.4-8.2)
[2021-04-19 07:21] LABS: GLUCOMETER DEV NAME(LOC) 5S.2B; GLUCOSE,POINT OF CARE 124 MG/DL (70-110)
[2021-04-19] MEDS: ETHYL ALCOHOL 62% ANTISEPTIC NASAL INHALANT 0.6 ML AMPUL NASAL SCH ×2 (09:00→21:52)
[2021-04-19] MEDS: METOPROLOL TARTRATE 50 MG TABLET PO SCH ×2 (09:11→21:50)
[2021-04-19] MEDS: POTASSIUM CHLORIDE 10 MEQ ER TABLET PO SCH (09:11)
[2021-04-19] MEDS: DOCUSATE SODIUM 100 MG CAPSULE PO SCH ×2 (09:12→21:00)
[2021-04-19] MEDS: BENAZEPRIL HCL 20 MG TABLET PO SCH (09:13)
[2021-04-19] MEDS: BuPROPion HCL XL 150 MG ER TABLET PO SCH (09:14)
[2021-04-19] MEDS: PANTOPRAZOLE SODIUM 40 MG/VIAL IVP SCH ×2 (09:14→21:52)
[2021-04-19] MEDS: FUROSEMIDE 40 MG/4 ML VIAL IVP SCH (09:14)
[2021-04-19] MEDS: ATORVASTATIN CALCIUM 20 MG TABLET PO SCH (09:14)
[2021-04-19] MEDS: FENOFIBRATE,MICRONIZED 67 MG CAPSULE PO SCH (09:14)
[2021-04-19] MEDS: DOXYCYCLINE HYCLATE 100 MG in DEXTROSE 5%-WATER 100 ML IV SCH ×2 (09:52→21:50)
[2021-04-19 12:27] VITALS: BP 141/69
[2021-04-19 13:11] LABS: GLUCOMETER DEV NAME(LOC) 5S.1B; GLUCOSE,POINT OF CARE 119 MG/DL (70-110)
[2021-04-19] MEDS: CefTRIAXone SODIUM 2 GM in DEXTROSE 5%-WATER 50 ML IV SCH (17:39)
[2021-04-19 18:54] VITALS: BP 130/52
[2021-04-19 19:01] LABS: GLUCOMETER DEV NAME(LOC) 5S.2B; GLUCOSE,POINT OF CARE 129 MG/DL (70-110)
[2021-04-19 20:41] LABS: GLUCOMETER DEV NAME(LOC) 5S.2B; GLUCOSE,POINT OF CARE 199 MG/DL (70-110)
[2021-04-19] MEDS: INSULIN LISPRO 100 UNITS/ML SQ PRN (21:54)
[2021-04-20] VITALS (15 sets, daily range): BP systolic 106–167; BP diastolic 53–89
[2021-04-20] MEDS ORDERED: SODIUM CHLORIDE 0.9% 250 ML IV ONE (00:05)
[2021-04-20] MEDS: LEVOTHYROXINE SODIUM 137 MCG TABLET PO SCH (05:27)
[2021-04-20 05:56] LABS: GLUCOMETER DEV NAME(LOC) 5S.1B; GLUCOSE,POINT OF CARE 91 MG/DL (70-110)
[2021-04-20 07:53] LABS: BASOPHILS % (AUTO) 0.5 % (0.0-2.0); EOSINOPHILS % (AUTO) 3.3 % (1.0-6.0); HEMATOCRIT 32.3 % (36-46); LYMPHOCYTES # (AUTO) 2.1 K/uL (1.0-4.8); LYMPHOCYTES % (AUTO) 25.9 % (22.0-44.0); MEAN CORPUSCULAR HEMOGLOBIN 31.5 pg (26.0-34.0); MEAN CORPUSCULAR HGB CONC 34.1 G/dL (31.0-37.0); MEAN CORPUSCULAR VOLUME 92 fL (80-100); MONOCYTES # (AUTO) 0.9 K/uL (0.1-1.0); MONOCYTES % (AUTO) 10.6 % (2.0-9.0); NEUTROPHILS # (AUTO) 4.8 K/uL (1.8-7.7); NEUTROPHILS % (AUTO) 59.7 % (40.0-70.0); PLATELET COUNT (AUTO) 334 K/uL (150-450); RED BLOOD CELL COUNT(AUTO) 3.49 MIL/uL (4.00-5.20); RED CELL DISTRIBUTION WIDTH 14.5 % (11.5-14.5)
[2021-04-20 08:02] LABS: ALBUMIN 2.4 g/dL (3.4-5.0); BILIRUBIN,TOTAL 0.2 mg/dL (0.1-1.0); CALCIUM, TOTAL 8.9 mg/dL (8.8-10.5); CREATININE 1.12 mg/dL (0.60-1.30); POTASSIUM 4.1 mmol/L (3.5-5.1); TOTAL PROTEIN, SERUM 6.4 g/dL (6.4-8.2)
[2021-04-20] MEDS ORDERED: LIDOCAINE/PF 1% 30 ML VIAL ONE (08:52)
[2021-04-20] MEDS ORDERED: IOHEXOL 300 MG/ML 150 ML VIAL ONE (08:52)
[2021-04-20] MEDS ORDERED: SODIUM BICARBONATE 50 MEQ/50 ML VIAL ONE (08:52)
[2021-04-20] MEDS ORDERED: IOHEXOL 300 MG/ML 100 ML VIAL ONE (08:52)
[2021-04-20] MEDS ORDERED: IOHEXOL 300 MG/ML 50 ML VIAL ONE (08:52)
[2021-04-20] MEDS: DOCUSATE SODIUM 100 MG CAPSULE PO SCH ×2 (09:00→20:38)
[2021-04-20] MEDS ORDERED: VERAPAMIL HCL 2.5 MG/ML 2 ML VIAL ONE (09:31)
[2021-04-20] MEDS ORDERED: MIDAZOLAM HCL 2 MG/2 ML VIAL ONE (09:31)
[2021-04-20] MEDS ORDERED: NITROGLYCERIN 50 MG/D5% WATER 250 ML ONE (09:31)
[2021-04-20] MEDS ORDERED: FentaNYL CITRATE PF 100 MCG/2 ML VIAL ONE (09:31)
[2021-04-20] MEDS ORDERED: LIDOCAINE 1% 30 ML/SOD BICARB 8.4% 4 ML SQ ONE (10:00)
[2021-04-20] MEDS ORDERED: HEPARIN SODIUM 1000 UNITS/NS 1,000 ML IARTER ONE (10:00)
[2021-04-20] MEDS ORDERED: IOHEXOL 300 MG/ML 150 ML VIAL IARTER ONE (10:00)
[2021-04-20] MEDS ORDERED: IOHEXOL 300 MG/ML 50 ML VIAL IARTER ONE (10:00)
[2021-04-20] MEDS ORDERED: SODIUM CHLORIDE 0.9% 500 ML IV ONE (10:00)
[2021-04-20] MEDS ORDERED: FentaNYL CITRATE PF 100 MCG/2 ML VIAL IVP ONE (10:00)
[2021-04-20] MEDS ORDERED: VERAPAMIL HCL 2.5 MG/ML 2 ML VIAL IARTER ONE (10:15)
[2021-04-20] MEDS ORDERED: NITROGLYCERIN/D5W 50 MG/250 ML IV BOTTLE IARTER ONE (10:15)
[2021-04-20] MEDS ORDERED: HEPARIN SODIUM,PORCINE 1,000 UNITS/ML 10 ML VIAL IARTER ONE (10:15)
[2021-04-20] MEDS ORDERED: CLOPIDOGREL BISULFATE 300 MG TABLET PO ONE (10:30)
[2021-04-20] MEDS ORDERED: ASPIRIN 325 MG TABLET PO ONE (10:30)
[2021-04-20] MEDS ORDERED: HEPARIN SODIUM,PORCINE 5,000 UNITS/ML VIAL IVP ONE ×2 (11:00)
[2021-04-20] MEDS: ETHYL ALCOHOL 62% ANTISEPTIC NASAL INHALANT 0.6 ML AMPUL NASAL SCH (11:48)
[2021-04-20] MEDS: METOPROLOL TARTRATE 50 MG TABLET PO SCH ×2 (11:48→20:38)
[2021-04-20] MEDS: FUROSEMIDE 40 MG/4 ML VIAL IVP SCH (11:48)
[2021-04-20] MEDS: BENAZEPRIL HCL 20 MG TABLET PO SCH (11:49)
[2021-04-20] MEDS: ATORVASTATIN CALCIUM 20 MG TABLET PO SCH (11:49)
[2021-04-20] MEDS: POTASSIUM CHLORIDE 10 MEQ ER TABLET PO SCH (11:49)
[2021-04-20] MEDS: FENOFIBRATE,MICRONIZED 67 MG CAPSULE PO SCH (11:49)
[2021-04-20] MEDS: BuPROPion HCL XL 150 MG ER TABLET PO SCH (11:49)
[2021-04-20] MEDS: PANTOPRAZOLE SODIUM 40 MG/VIAL IVP SCH ×2 (11:51→20:38)
[2021-04-20] MEDS: DOXYCYCLINE HYCLATE 100 MG in DEXTROSE 5%-WATER 100 ML IV SCH ×2 (11:53→20:39)
[2021-04-20] MEDS: INSULIN LISPRO 100 UNITS/ML SQ PRN ×2 (12:55→21:02)
[2021-04-20 17:26] LABS: GLUCOMETER DEV NAME(LOC) 5S.1B; GLUCOSE,POINT OF CARE 111 MG/DL (70-110)
[2021-04-20 17:26] LABS: GLUCOMETER DEV NAME(LOC) 5S.1B; GLUCOSE,POINT OF CARE 214 MG/DL (70-110)
[2021-04-20] MEDS: CefTRIAXone SODIUM 2 GM in DEXTROSE 5%-WATER 50 ML IV SCH ×2 (18:14→20:49)
[2021-04-20] MEDS: ACETAMINOPHEN 325 MG TABLET PO PRN (20:45)
[2021-04-20 21:21] LABS: GLUCOMETER DEV NAME(LOC) 5S.1B; GLUCOSE,POINT OF CARE 162 MG/DL (70-110)
[2021-04-21] VITALS: BP 115/51
[2021-04-21 04:00] VITALS: BP 135/64
[2021-04-21] MEDS: LEVOTHYROXINE SODIUM 137 MCG TABLET PO SCH (05:57)
[2021-04-21 06:01] LABS: GLUCOMETER DEV NAME(LOC) 5S.1B; GLUCOSE,POINT OF CARE 119 MG/DL (70-110)
[2021-04-21 07:22] VITALS: BP 121/60
[2021-04-21 08:43] LABS: BASOPHILS % (AUTO) 0.6 % (0.0-2.0); EOSINOPHILS % (AUTO) 2.8 % (1.0-6.0); HEMATOCRIT 33.8 % (36-46); HEMOGLOBIN 11.2 g/dL (12.0-16.0); LYMPHOCYTES # (AUTO) 2.5 K/uL (1.0-4.8); MEAN CORPUSCULAR HGB CONC 33.2 G/dL (31.0-37.0); MEAN CORPUSCULAR VOLUME 93 fL (80-100); MONOCYTES # (AUTO) 0.8 K/uL (0.1-1.0); MONOCYTES % (AUTO) 8.7 % (2.0-9.0); NEUTROPHILS # (AUTO) 5.5 K/uL (1.8-7.7); NEUTROPHILS % (AUTO) 60.9 % (40.0-70.0); PLATELET COUNT (AUTO) 351 K/uL (150-450); RED BLOOD CELL COUNT(AUTO) 3.62 MIL/uL (4.00-5.20); RED CELL DISTRIBUTION WIDTH 14.4 % (11.5-14.5)
[2021-04-21] MEDS ORDERED: APIXABAN 5 MG TABLET PO SCH (09:00)
[2021-04-21] MEDS ORDERED: CLOPIDOGREL BISULFATE 75 MG TABLET PO SCH (09:00)
[2021-04-21 09:08] LABS: ALBUMIN 2.6 g/dL (3.4-5.0); BILIRUBIN,TOTAL 0.2 mg/dL (0.1-1.0); CALCIUM, TOTAL 9.2 mg/dL (8.8-10.5); CREATININE 1.25 mg/dL (0.60-1.30); POTASSIUM 4.1 mmol/L (3.5-5.1); TOTAL PROTEIN, SERUM 6.9 g/dL (6.4-8.2)
[2021-04-21] MEDS: DOXYCYCLINE HYCLATE 100 MG in DEXTROSE 5%-WATER 100 ML IV SCH (09:20)
[2021-04-21] MEDS: METOPROLOL TARTRATE 50 MG TABLET PO SCH (09:22)
[2021-04-21] MEDS: PANTOPRAZOLE SODIUM 40 MG/VIAL IVP SCH (09:22)
[2021-04-21] MEDS: FUROSEMIDE 40 MG/4 ML VIAL IVP SCH (09:22)
[2021-04-21] MEDS: ATORVASTATIN CALCIUM 20 MG TABLET PO SCH (09:22)
[2021-04-21] MEDS: FENOFIBRATE,MICRONIZED 67 MG CAPSULE PO SCH (09:22)
[2021-04-21] MEDS: POTASSIUM CHLORIDE 10 MEQ ER TABLET PO SCH (09:23)
[2021-04-21] MEDS: BENAZEPRIL HCL 20 MG TABLET PO SCH (09:23)
[2021-04-21] MEDS: DOCUSATE SODIUM 100 MG CAPSULE PO SCH (09:23)
[2021-04-21] MEDS: BuPROPion HCL XL 150 MG ER TABLET PO SCH (09:23)
[2021-04-21 11:20] VITALS: BP 122/70
[2021-04-21] MEDS ORDERED: FURO20 PO (13:47)
[2021-04-21] MEDS ORDERED: CLOP75TA60 PO (13:47)
[2021-04-21] MEDS ORDERED: DOXY50 PO (13:49)
[2021-04-21 14:01] LABS: ABG CARBOXYHEMOGLOBIN 0.6 % (0.0-1.5); ABG HCO3 27.1 mmol/L (22.0-26.0); ABG METHEMOGLOBIN 0.3 % (0.0-1.5); ABG OXYGEN CONTENT 14.4 mL/dL (15.0-23.0); ABG OXYGEN SATURATION 91.5 % (95.0-98.0); ABG OXYHEMOGLOBIN 90.7 % (94.0-100.0); ABG PCO2 37 mmHg (35-45); ABG PH 7.479 (7.35-7.450); ABG TOTAL HEMOGLOBIN 11.3 G/dL (12.0-18.0); PO2, ARTERIAL BG 59.5 mmHg (75.0-83.0); SOURCE, BLOOD GAS ARTERIAL; TEMPERATURE, FAHRENHEIT, BG 98.1 FAHREN (96.0-98.6)
[2021-04-21 14:02] LABS: SITE, BLOOD GAS LFT BRACHIAL
[2021-04-21 15:17] VITALS: BP 113/56
[2021-04-21] MEDS: ACETAMINOPHEN 325 MG TABLET PO PRN (15:48)
[2021-04-21 17:16] LABS: GLUCOMETER DEV NAME(LOC) 5S.2B; GLUCOSE,POINT OF CARE 113 MG/DL (70-110)
[2021-04-21 19:51] LABS: GLUCOMETER DEV NAME(LOC) 5S.1B; GLUCOSE,POINT OF CARE 124 MG/DL (70-110)
[2021-04-21] MEDS ORDERED: FUROSEMIDE 20 MG TABLET PO SCH (21:00)
== END 2021-04-21 18:45 | disposition home or self-care (01) | DRG 246 ==
LOC: EMS 07:18 → ICU 18:44 → OBSVTOIN 18:44 → INTOOBSV 18:44 → ICU 23:15 → 5N 04-15 15:45
PROVIDERS: ADMIT Hospitalist; ATTEND Internal Medicine
PROC: 5A09357 Assistance with Respiratory Ventilation, Less than 24 Consecutive Hours, Continuous Positive Airway Pressure (ICD-10-PCS; 2021-04-13)
PROC: 5A1935Z Respiratory Ventilation, Less than 24 Consecutive Hours (ICD-10-PCS; 2021-04-13)
PROC: 5A09357 Assistance with Respiratory Ventilation, Less than 24 Consecutive Hours, Continuous Positive Airway Pressure (ICD-10-PCS; 2021-04-14)
PROC: 5A0935A Assistance with Respiratory Ventilation, Less than 24 Consecutive Hours, High Flow/Velocity Cannula (ICD-10-PCS; 2021-04-14)
PROC: 5A0935A Assistance with Respiratory Ventilation, Less than 24 Consecutive Hours, High Flow/Velocity Cannula (ICD-10-PCS; 2021-04-15)
PROC: 5A0935A Assistance with Respiratory Ventilation, Less than 24 Consecutive Hours, High Flow/Velocity Cannula (ICD-10-PCS; 2021-04-16)
PROC: 5A0935A Assistance with Respiratory Ventilation, Less than 24 Consecutive Hours, High Flow/Velocity Cannula (ICD-10-PCS; 2021-04-17)
PROC: 0W993ZZ Drainage of Right Pleural Cavity, Percutaneous Approach (ICD-10-PCS; 2021-04-17)
PROC: 5A0935A Assistance with Respiratory Ventilation, Less than 24 Consecutive Hours, High Flow/Velocity Cannula (ICD-10-PCS; 2021-04-18)
PROC: 0W9B3ZZ Drainage of Left Pleural Cavity, Percutaneous Approach (ICD-10-PCS; 2021-04-18)
PROC: 5A0935A Assistance with Respiratory Ventilation, Less than 24 Consecutive Hours, High Flow/Velocity Cannula (ICD-10-PCS; 2021-04-19)
PROC: 027034Z Dilation of Coronary Artery, One Artery with Drug-eluting Intraluminal Device, Percutaneous Approach (ICD-10-PCS; principal; 2021-04-20)
PROC: 4A023N7 Measurement of Cardiac Sampling and Pressure, Left Heart, Percutaneous Approach (ICD-10-PCS; 2021-04-20)
PROC: B2111ZZ Fluoroscopy of Multiple Coronary Arteries using Low Osmolar Contrast (ICD-10-PCS; 2021-04-20)
DX: I11.0 Hypertensive heart disease with heart failure (principal); J18.9 Pneumonia, unspecified organism; I50.23 Acute on chronic systolic (congestive) heart failure; J96.01 Acute respiratory failure with hypoxia; J96.21 Acute and chronic respiratory failure with hypoxia; J91.8 Pleural effusion in other conditions classified elsewhere; I48.0 Paroxysmal atrial fibrillation; I35.1 Nonrheumatic aortic (valve) insufficiency; E03.9 Hypothyroidism, unspecified; Z20.822 Contact with and (suspected) exposure to COVID-19; E78.5 Hyperlipidemia, unspecified; E11.40 Type 2 diabetes mellitus with diabetic neuropathy, unspecified; E87.6 Hypokalemia; I25.10 Atherosclerotic heart disease of native coronary artery without angina pectoris; Z86.16 Personal history of COVID-19; I25.2 Old myocardial infarction; Z87.01 Personal history of pneumonia (recurrent); Z87.891 Personal history of nicotine dependence; Z95.5 Presence of coronary angioplasty implant and graft
CPT/HCPCS: 32555; 36600; 51702; 71045; 71046; 71275; 76942; 80053; 82271; 82465; 82805; 82945; 82962; 83615; 83735; 83880; 83986; 84132; 84145; 84157; 84484; 85025; 85610; 85730; 87015; 87075; 87081; 87101; 87205; 87206; 89051; 92610; 92920; 92928; 93005; 94660; 97116; 97161; 99291; C9113; G0378; J0696; J1644; J1940; J2060; J2250; J2270; J3010; J3490; J7050; J7060; Q9967; 36415-L1; 36415-TC; 87070; U0003; Z7610

== ENCOUNTER 2021-05-15 21:45 | Emergency (ER) | payer MEDICARE ==
[~2021-05-15] VITALS: Ht 154.9 cm; Wt 61.4 kg
[2021-05-15 21:45] VITALS: BP 101/34
[~2021-05-15 21:45] MED LIST changes: +CLOP75TA60 PO; +DOXY50 PO; -FENO134C PO; +FENO134C21 PO; +FURO20 PO
[2021-05-15] MEDS ORDERED: 0.9% SODIUM CHLORIDE 10 ML SYRINGE IVP ONE (21:48)
[2021-05-15] MEDS ORDERED: EPINEPHrine 1:10,000 [1 MG/10 ML] SYRINGE IVP ONE (21:48)
== END 2021-05-16 01:06 ==
LOC: EDUNIT# 21:45 → EMS 21:47
DX: I46.9 Cardiac arrest, cause unspecified (principal); Z79.899 Other long term (current) drug therapy
CPT/HCPCS: 92950; 99285; J0171